=== PATIENT | female | born 1965 | race Caucasian/White ===

== ENCOUNTER 2017-08-03 20:00 | Emergency (ER) | payer SELFPAY ==
[~2017-08-03] VITALS: Ht 162.6 cm; Wt 75.6 kg
[2017-08-03] MEDS ORDERED: DILANTIN100 MG PO (20:15)
[2017-08-03 21:27] LABS: INFLUENZA A NONE DETECTED (NONE DETECT); INFLUENZA B NONE DETECTED (NONE DETECT)
[2017-08-03] MEDS ORDERED: ANTIVERT PO (21:33)
[2017-08-03] MEDS ORDERED: AMOXICILLIN500 MG PO (21:33)
[2017-08-03 21:57] VITALS: BP 109/64
== END 2017-08-03 22:14 | disposition home or self-care (01) | DRG 153 ==
LOC: ED 20:00
PROVIDERS: Emergency Medicine
DX: H66.91 Otitis media, unspecified, right ear (principal); F17.210 Nicotine dependence, cigarettes, uncomplicated; J06.9 Acute upper respiratory infection, unspecified; J34.89 Other specified disorders of nose and nasal sinuses; R05 Cough; H92.03 Otalgia, bilateral

== ENCOUNTER 2018-03-25 16:38 | Emergency (ER) | payer OTHER ==
[~2018-03-25] VITALS: Ht 162.6 cm; Wt 97.5 kg
[~2018-03-25 16:38] MED LIST: AMOXICILLIN500 MG PO; ANTIVERT PO; DILANTIN100 MG PO
[2018-03-25 17:21] VITALS: BP 110/70
== END 2018-03-25 17:26 | disposition home or self-care (01) | DRG 935 ==
LOC: ED 16:38
DX: T22.211A Burn of second degree of right forearm, initial encounter (principal); T31.0 Burns involving less than 10% of body surface; G40.909 Epilepsy, unspecified, not intractable, without status epilepticus; F17.210 Nicotine dependence, cigarettes, uncomplicated; X19.XXXA Contact with other heat and hot substances, initial encounter; Y93.G3 Activity, cooking and baking; Y92.511 Restaurant or cafe as the place of occurrence of the external cause; Y99.0 Civilian activity done for income or pay